=== PATIENT | male | born 1990 | race African-American/Black ===

== ENCOUNTER 2017-02-24 02:01 | Inpatient (IN) | payer MEDICAID, OTHER ==
[~2017-02-24] VITALS: Ht 175.3 cm; Wt 69.4 kg
[2017-02-24 02:57] LABS: BASOPHILS % (AUTO) 0.4 % (0.0-2.0); EOSINOPHILS % (AUTO) 0.4 % (1.0-6.0); HEMATOCRIT 43.7 % (41-53); LYMPHOCYTES # (AUTO) 1.3 K/uL (1.0-4.8); LYMPHOCYTES % (AUTO) 11.7 % (22.0-44.0); MEAN CORPUSCULAR HEMOGLOBIN 30.3 pg (26.0-34.0); MEAN CORPUSCULAR HGB CONC 34.3 G/dL (31.0-37.0); MEAN CORPUSCULAR VOLUME 88 fL (80-100); MONOCYTES # (AUTO) 0.6 K/uL (0.1-1.0); MONOCYTES % (AUTO) 5.9 % (2.0-9.0); NEUTROPHILS # (AUTO) 8.7 K/uL (1.8-7.7); NEUTROPHILS % (AUTO) 81.6 % (40.0-70.0); PLATELET COUNT (AUTO) 329 K/uL (150-450); RED BLOOD CELL COUNT(AUTO) 4.93 MIL/uL (4.50-5.90); WHITE BLOOD COUNT (AUTO) 10.7 K/uL (4.5-11.0)
[2017-02-24 03:04] LABS: ANION GAP 16 mmol/L (8-16); CALCIUM, TOTAL 9.5 mg/dL (8.8-10.5); CARBON DIOXIDE 25 mmol/L (22-29); CHLORIDE 95 mmol/L (98-107); CREATININE 1.43 mg/dL (0.60-1.30); GLOMERULAR FILTR. RATE CALC > 60 mL/min (>60); POTASSIUM 3.5 mmol/L (3.5-5.1); SODIUM SERUM 136 mmol/L (136-145); UREA NITROGEN, BLOOD 18 mg/dL (7-18)
[2017-02-24 03:10] LABS: ALANINE AMINOTRANSFERASE 28 U/L (12-78); ALBUMIN 4.5 g/dL (3.4-5.0); ASPARTATE AMINOTRANSFERASE 36 U/L (15-37); BILIRUBIN,TOTAL 1.1 mg/dL (0.1-1.0); TOTAL PROTEIN, SERUM 8.1 g/dL (6.4-8.2)
[2017-02-24] MEDS ORDERED: PERTUSS(ACELL),DIPH,TET VAC/PF 0.5 ML VIAL IM ONE (03:15)
[2017-02-24] MEDS ORDERED: DiphenhydrAMINE HCL 50 MG/ML VIAL IM ONE (03:15)
[2017-02-24] MEDS ORDERED: HALOPERIDOL LACTATE 5 MG/ML VIAL IM ONE (03:15)
[2017-02-24] MEDS ORDERED: LORazepam 2 MG/ML VIAL IM ONE (03:15)
[2017-02-24] MEDS ORDERED: ZOLPIDEM TARTRATE 10 MG TABLET PO PRN (03:30)
[2017-02-24 04:27] LABS: CHOL/HDL RATIO 2.4 (4.2-7.3); THYROID STIMULATING HORMONE 2.28 uIU/mL (0.36-3.74)
[2017-02-24] MEDS: LORazepam 2 MG TABLET PO PRN (10:46)
[2017-02-24] MEDS: HALOPERIDOL 5 MG TABLET PO PRN (10:46)
[2017-02-24 11:05] VITALS: BP 101/59
[2017-02-24 11:49] VITALS: BP 101/59
[2017-02-24] MEDS ORDERED: BACITRACIN 28.4 GM OINTMENT TP PRN (12:00)
[2017-02-24] MEDS ORDERED: ONDANSETRON HCL 4 MG TABLET PO PRN (12:00)
[2017-02-24] MEDS ORDERED: PETROLATUM,WHITE 71 GM JELLY TP PRN (12:00)
[2017-02-24] MEDS ORDERED: BENZOCAINE/MENTHOL LOZENGE MM PRN (12:00)
[2017-02-24] MEDS ORDERED: MAGNESIUM HYDROXIDE SUSPENSION 30 ML UDCUP PO PRN (12:00)
[2017-02-24] MEDS ORDERED: LOPERAMIDE HCL 2 MG CAPSULE PO PRN (12:00)
[2017-02-24] MEDS ORDERED: ACETAMINOPHEN 325 MG TABLET PO PRN (12:00)
[2017-02-24] MEDS ORDERED: CloNIDine HCL 0.1 MG TABLET PO PRN (12:00)
[2017-02-24] MEDS ORDERED: IBUPROFEN 600 MG TABLET PO PRN (12:00)
[2017-02-24] MEDS ORDERED: ALBUTEROL SULFATE HFA 90 MCG/PUFF 8 GM INHALER IH PRN (12:00)
[2017-02-24] MEDS ORDERED: MAG HYDROX/AL HYDROX/SIMETH ES 30 ML SUSPENSION UDCUP PO PRN (12:00)
[2017-02-24 14:00] VITALS: BP 117/67
[2017-02-24 16:00] VITALS: BP 115/67
[2017-02-25] MEDS ORDERED: INFLUENZA VIRUS VACCINE QVS 2017-18 (3YR+)/PF 60 MCG/0.5 ML SYRINGE IM ONE (03:00)
[2017-02-25 08:25] VITALS: BP 108/62
[2017-02-25] MEDS: LORazepam 2 MG TABLET PO PRN (08:59)
[2017-02-25] MEDS: NICOTINE 21 MG/24 HOUR PATCH TD SCH (08:59)
[2017-02-25] MEDS: HALOPERIDOL 5 MG TABLET PO PRN (08:59)
[2017-02-25 16:10] VITALS: BP 110/65
[2017-02-25] MEDS: RisperiDONE 1 MG TABLET PO SCH (20:28)
[2017-02-26] VITALS (9 sets, daily range): BP systolic 115–146; BP diastolic 64–90
[2017-02-26] MEDS: NICOTINE 21 MG/24 HOUR PATCH TD SCH (08:35)
[2017-02-26] MEDS ORDERED: DiphenhydrAMINE HCL 25 MG CAPSULE PO ONE (14:15)
[2017-02-26] MEDS: LORazepam 2 MG TABLET PO PRN (16:31)
[2017-02-26] MEDS: RisperiDONE 1 MG TABLET PO SCH (20:31)
[2017-02-27 06:23] VITALS: BP 129/69
[2017-02-27 08:06] VITALS: BP 128/65
[2017-02-27] MEDS: NICOTINE 21 MG/24 HOUR PATCH TD SCH (08:50)
[2017-02-27] MEDS ORDERED: RISP1 PO (15:36)
== END 2017-02-27 17:06 | disposition home or self-care (01) | DRG 751 ==
LOC: EMS 02:04 → AHU 08:55 → B3A 13:00
PROC: 3E0234Z Introduction of Serum, Toxoid and Vaccine into Muscle, Percutaneous Approach (ICD-10-PCS; principal; 2017-02-24)
DX: F29 Unspecified psychosis not due to a substance or known physiological condition (principal); F41.9 Anxiety disorder, unspecified; G47.00 Insomnia, unspecified; K59.00 Constipation, unspecified; F17.200 Nicotine dependence, unspecified, uncomplicated; F15.90 Other stimulant use, unspecified, uncomplicated; Z23 Encounter for immunization
CPT/HCPCS: 84443; 90471; 90715; 96372; 99285; G0480; J1200; J1630; J2060